=== PATIENT | male | born 1990 | race Caucasian/White ===

== ENCOUNTER 2022-04-16 06:01 | Emergency (ER) | payer SELFPAY ==
--- NOTE | 2022-04-16 06:44 | EDPHYS ---
Physician Documentation [facility] Name: Wu Parks Age: 31 yrs Sex: Male : 1990 Arrival Date: 04/16/2022 Time: 06:05 Bed 18 Private MD: ED Physician Kelvin Dillard HPI: 04/16 06:38 This 31 yrs old Male presents to ER via EMS with complaints of feet hurt \T\ I want to go sp3 to rehab. 06:38 31-year-old male with a history of methamphetamine abuse to the ED via EMS found sp3 sleeping at [facility] secondary to his bilateral feet hurting and him wanting to go to rehab. She has had a 4-day history of daily methamphetamine use and yesterday he was evicted from his place of residence. He says all of his stuff is at his mother's house. She was no longer helping. He denies any direct trauma to the feet, fever, chest pain, shortness of breath, back pain, other joint pain, any other ROS at this time. Regarding rehab, he is asking for transportation to [place] to go to rehab there.. - Social history:: Smoking status: unknown Patient uses street drugs, Methamphetamine (Meth). ROS: 06:40 Constitutional: Negative for fever, chills, and weight loss, Eyes: Negative for injury, sp3 pain, redness, and discharge, ENT: Negative for injury, pain, and discharge, Neck: Negative for injury, pain, and swelling, Cardiovascular: Negative for chest pain, palpitations, and edema, Respiratory: Negative for shortness of breath, cough, wheezing, and pleuritic chest pain, Abdomen/GI: Negative for abdominal pain, nausea, vomiting, diarrhea, and constipation, Back: Negative for injury and pain, Skin: Negative for injury, rash, and discoloration, Neuro: Negative for headache, weakness, numbness, tingling, and seizure, Psych: Negative for depression, anxiety, suicide ideation, homicidal ideation, and hallucinations, Allergy/Immunology: Negative for hives, rash, and allergies. 06:40 All other systems are negative. Exam: 06:40 Constitutional: This is a well developed, well nourished patient who is awake, alert, sp3 and in no acute distress. Head/Face: Normocephalic, atraumatic. Eyes: Pupils equal round and reactive to light, extra-ocular motions intact. Lids and lashes normal. Conjunctiva and sclera are non-icteric and not injected. Cornea within normal limits. Periorbital areas with no swelling, redness, or edema. Neck: Trachea midline, no thyromegaly or masses palpated, and no cervical lymphadenopathy. Supple, full range of motion without nuchal rigidity, or vertebral point tenderness. No Meningismus. Chest/axilla: Normal chest wall appearance and motion. Nontender with no deformity. No lesions are appreciated. Cardiovascular: Regular rate and rhythm with a normal S1 and S2. No gallops, murmurs, or rubs. Normal PMI, no JVD. No pulse deficits. Respiratory: Lungs have equal breath sounds bilaterally, clear to auscultation and percussion. No rales, rhonchi or wheezes noted. No increased work of breathing, no retractions or nasal flaring. Abdomen/GI: Soft, non-tender, with normal bowel sounds. No distension or tympany. No guarding or rebound. No evidence of tenderness throughout. Back: No spinal tenderness. No costovertebral tenderness. Full range of motion. Neuro: Awake and alert, GCS 15, oriented to person, place, time, and situation. Cranial nerves II-XII grossly intact. Motor strength 5/5 in all extremities. Sensory grossly intact. Cerebellar exam normal. Normal gait. Psych: Awake, alert, with orientation to person, place and time. Behavior, mood, and affect are within normal limits. 06:40 ENT: Unkempt male with malodorous breath and poor dentition consistent with methamphetamine abuse.. 06:40 Musculoskeletal/extremity: Lateral plantar blisters consistent with increased walking. No evidence of trench foot or cellulitis or infection.. 06:40 Psych: He denies suicidal ideation, homicidal ideation, auditory and visual psychosis. He is resting comfortably in his bed with no pain and in no acute distress.. Vital Signs: 06:06 BP 119 / 88; Pulse 76; Resp 18; Temp 97.6(O); Pulse Ox 100% on R/A; Weight 54.43 kg; mw1 Height 5 ft. 9 in. (175.26 cm); Pain 6/10; 06:06 Body Mass Index 17.72 (54.43 kg, 175.26 cm) mw1 MDM: 06:31 Patient medically screened. sp3 06:42 Data reviewed: vital signs, nurses notes. ED course: 31-year-old male with sp3 methamphetamine abuse who is now temporarily homeless and requesting rehab. Patient is medically clear and has no medical emergency requiring further intervention. Will give resources and try and direct patient to rehab.. Administered Medications: No medications were administered Disposition Summary: 04/16/22 06:43 Discharge Ordered Location: Home sp3 Condition: Stable sp3 Diagnosis - Methamphetamine abuse, drug abuse chronic sp3 Followup: sp3 - With: Private Physician - When: As needed - Reason: Continuance of care Discharge Instructions: - Discharge Summary Sheet sp3 - Methamphetamines Use Disorder sp3 Forms: - Medication Reconciliation Form sp3 - Thank You Letter sp3 - Antibiotic Education sp3 - Prescription Opioid Use sp3 Signatures: Kelvin Dillard MD MD sp3 Rachid Ling, RN RN ja4
--- NOTE | 2022-04-16 06:44 | ER ---
Nurse's Notes [facility] Name: Wu Parks Age: 31 yrs Sex: Male : 1990 Arrival Date: 04/16/2022 Time: 06:05 Bed 18 Private MD: Diagnosis: Methamphetamine abuse, drug abuse chronic Presentation: 04/16 06:06 Chief complaint: Patient states: "bottom of my feet hurt" EMS states: ems stated pt was ja4 found asleep at [facility]. Ebola Screen: No symptoms or risks identified at this time. Initial Sepsis Screen: Does the patient meet any 2 criteria? No. Patient's initial sepsis screen is negative. Risk Assessment: Do you want to hurt yourself or someone else? Unable to obtain. Onset of symptoms is unknown. 06:06 Method Of Arrival: EMS ja4 06:06 Acuity: [facility] 3 ja4 Triage Assessment: 06:11 General: Appears uncomfortable, unkempt, malnourished, Behavior is drowsy, Smells of ja4 Reports Denies. Pain: Complains of pain in right foot and left foot Pain currently is 6 out of 10 on a pain scale. - Social history:: Smoking status: unknown Patient uses street drugs, Methamphetamine (Meth). Screenin:13 Fall Risk Mental Status- Overestimates/Forgets Limitations (15 pts.). ja4 Assessment: 06:13 General: Appears unkempt, malnourished, Behavior is drowsy, unable to stay awake to ja4 answer qestions. Pain: Complains of pain in right foot and left foot Pain currently is 6 out of 10 on a pain scale. Neuro: Speech is normal. 06:59 Reassessment: pt reluctant to leave. pt appears to be trying to get the hospital to pay ja4 for a him to go somewhere. unable to accommodate pt. pt has been advised 3 x that he needs to leave the ed. Vital Signs: 06:06 BP 119 / 88; Pulse 76; Resp 18; Temp 97.6(O); Pulse Ox 100% on R/A; Weight 54.43 kg; mw1 Height 5 ft. 9 in. (175.26 cm); Pain 6/10; 06:06 Body Mass Index 17.72 (54.43 kg, 175.26 cm) mw1 ED Course: 06:05 Patient arrived in ED. ds4 06:06 Rachid Ling, RN is Primary Nurse. ja4 06:10 Triage completed. ja4 06:11 Arm band placed on left wrist. ja4 06:13 Patient has correct armband on for positive identification. Bed in low position. Call ja4 light in reach. Side rails up X2. 06:13 No provider procedures requiring assistance completed. ja4 06:16 Kelvin Dillard MD is Attending Physician. sp3 Administered Medications: No medications were administered Medication: 06:13 VIS not applicable for this client. ja4 Outcome: 06:43 Discharge ordered by . sp3 07:01 Discharged to home ja4 07:01 Condition: stable 07:01 Discharge instructions given to patient. 07:06 Patient left the ED. ja4 Signatures: Jair Carreno ds4 Ignacio Bradley 1 Kelvin Dillard MD MD sp3 Rachid Ling, RN RN ja4
[2022-04-16 07:23] VITALS: BP 119/88; TEMP 97.6; O2SAT 100
== END 2022-04-16 07:06 | disposition home or self-care (01) ==
LOC: ER 06:01
DX: F15.10 Other stimulant abuse, uncomplicated (principal); M79.672 Pain in left foot; M79.671 Pain in right foot
CPT/HCPCS: 99283